=== PATIENT | male | born 1935 | race Two or more races ===

== ENCOUNTER 2016-11-11 11:44 | Outpatient (CLI) ==
[2016-11-11 13:11] LABS: BASOPHILS # (AUTO) 0.1 K/uL (0-0.2); BASOPHILS % (AUTO) 0.8 % (0.0-3.0); EOSINOPHILS # (AUTO) 0.2 K/ul (0.0-0.7); EOSINOPHILS % (AUTO) 3.7 % (0.0-7.0); HEMATOCRIT 42.6 % (42.0-52.0); HEMOGLOBIN 14.3 g/dl (14.0-18.0); IMMATURE GRANULOCYTE % (AUTO) 0.3 % (0.0-5.0); LYMPHOCYTES # (AUTO) 1.9 K/uL (0.60-3.4); LYMPHOCYTES % (AUTO) 30.8 (10.0-50.0); MEAN CORPUSCULAR HEMOGLOBIN 29.1 pg (27.0-31.0); MEAN CORPUSCULAR HGB CONC 33.6 (31.8-35.4); MEAN CORPUSCULAR VOLUME 86.8 fl (80.0-94.0); MONOCYTES # (AUTO) 0.4 K/uL (0.4-2.0); MONOCYTES % (AUTO) 5.9 (0-10); NEUTROPHILS # (AUTO) 3.7 K/ul (2.0-6.9); NEUTROPHILS % (AUTO) 58.5; PLATELET COUNT 170 10^3/uL (140-440); RED BLOOD COUNT 4.91 10^6/ul (4.70-6.10); WHITE BLOOD COUNT 6.24 K/ul (4.2-10.2)
[2016-11-11 14:33] LABS: ALBUMIN 3.7 g/dL (3.4-5.0); ALBUMIN/GLOBULIN RATIO 0.9; ANION GAP 15.1; BILIRUBIN,TOTAL 0.47 mg/dL (0.00-1.20); BUN/CREATININE RATIO 11.97; CALCIUM 9.6 mg/dL (8.2-10.2); CHOL/HDL RATIO 5.4 (4.5-6.4); CREATININE 1.42 mg/dL (0.60-1.10); POTASSIUM 4.1 mmol/L (3.5-5.1); TOTAL PROTEIN 7.8 g/dL (5.8-8.1)
== END 2016-11-11 11:45 | disposition home or self-care (01) ==
LOC: LAB 11:44
PROVIDERS: ATTEND Nurse Practitioner Family
DX: R49.0 Dysphonia (principal); E75.6 Lipid storage disorder, unspecified; Z12.5 Encounter for screening for malignant neoplasm of prostate; Z95.5 Presence of coronary angioplasty implant and graft; Z80.0 Family history of malignant neoplasm of digestive organs; Z87.891 Personal history of nicotine dependence
CPT/HCPCS: 36415; 80053; 80061; 84439; 84443; 85025

== ENCOUNTER 2016-11-12 09:41 | Outpatient (CLI) ==
--- NOTE | 2016-11-12 12:02 | CT ---
EXAM: CT THORAX HISTORY: Smoker for 30 years, family history of throat cancer, hoarseness. TECHNIQUE: CT thorax with and without intravenous contrast. 5-mm axial sections. Coronal and sagit chepe re-formations. 75 ml Visipaque [id number] FINDINGS: No comparison CT. Normal heart size. There is moderate atherosclerotic disease. Dilatation of the ascending aortic c aliber at 3.5 cm. There are a few scattered nonspecific mediastinal and hilar lymph nodes remaining sub centimeter in size. The lungs are hyperinflated. There is evidence of mild to moderate pulmonary emphysema. There is a partially calcified stellate focus in the right apex measuring 0.86 cm likely fibrotic in nature. In the anterior left upper lobe, there is a stellate 1.2 cm opacity which is indeterminate. In the medial left base near the posterior cardiophrenic angle, there is an indeterminate lobular opacity m easuring 1.3 cm axial and 2.2 cm coronal. There is linear consolidation in the posterior left cardi ophrenic angle, a band of opacity measuring up to 1.2 cm in thickness. This partially connects to t he other regional parenchymal abnormality. This could represent fibrosis or atelectasis. Cannot ex clude neoplasia. No vascular congestion or consolidated pneumonia is suspected. No pleural fluid. The bones reveal no acute abnormality. No supraclavicular or axillary lymphadenopathy is suggested. No apical or supraclavicular masses are obvious within the field of view. The level of the vocal folds is partially covered within the field of view and grossly unremarkable. IMPRESSION: 1. Pulmonary emphysema/chronic obstructive pulmonary disease. 2. There are two or three regions of indeterminate opacity within the left lung as described. Thes e are probably fibrotic although neoplasia is within the differential. Consider follow-up CT in [facility]. 3. Dilatation of the ascending aortic caliber at 3.5 cm. Atherosclerotic disease. 4. The level of the vocal folds is partially covered within the field of view and grossly unremarka ble.
== END 2016-11-12 09:42 | disposition home or self-care (01) ==
LOC: RAD 09:41
PROVIDERS: ATTEND Nurse Practitioner Family
DX: R49.0 Dysphonia (principal); Z80.0 Family history of malignant neoplasm of digestive organs; Z87.891 Personal history of nicotine dependence; Z95.5 Presence of coronary angioplasty implant and graft

== ENCOUNTER 2017-12-04 16:05 | Inpatient (IN) ==
--- NOTE | 2017-12-04 15:56 | ED.PDOC ---
General ED Provider: Dr. THAD SHAVER Chief Complaint: Shortness of Air Stated Complaint: Shortness of breath. stated her has been in failing heatlh with weight loss. Last year had imaging study suggestive of possible lung tumor but due to their residence out in [facility] found it difficult to follow up for additional testing plus he really did not want additional testing or treatment. Has not been eating or drinking fluid. Has developed progressive dyspnea and sought emergency evaluation . Time Seen by Physician: 15:40 Mode of Arrival: Ambulance Information Source: Patient, EMT Exam Limitations: No limitations Primary Care Provider: SHAHEED MIMS Nursing and Triage Documentation Reviewed and Agree: Yes Reviewed sepsis parameters & appropriate labs ordered?: Yes System Inflammatory Response Syndrome: Temp 96.8F or Lower, Pulse >90 BPM, Resp >20/Minute Sepsis Protocol: For patient's 13 years and over: Temp is 96.8 and below OR 101 and greater Pulse >90 BPM Resp >20/minute Acutely Altered Mental Status Are patient's symptoms suggestive of a new infection, such as: -Pneumonia -Skin, Soft Tissue -Endocarditis -UTI -Bone, Joint Infection -Implantable Device -Acute Abdominal Infection -Wound Infection -Meningitis -Blood Stream Catheter Infection -Unknown Respiratory Complaint Exam - Respiratory Complaint/Exam Symptoms Are: Still present, Worse Timing: Constant Initial Severity: Moderate Current Severity: Moderate Location: Throat, Chest Character: Reports: Dry cough Aggravating: Reports: Recumbent position Alleviating: Reports: Upright position Associated Signs and Symptoms: Reports: Rapid breathing, Dyspnea, Increased thirst Related History: Denies: Similar episode, Allergic reaction Related Surgical History: Reports: None Pulmonary Embolism Risk Factors: None Cardiac Risk Factors: Reports: None Pseudomonas Risk Factors: Reports: None Tuberculosis Risk Factors: Reports: None Status Asthmaticus Risk Factors: Reports: None Home Oxygen Use: No Recent Stress Test: No Recent Echo/LV Function: No Current Antibiotic Use: No Current Asthma Medication Use: No Respiratory Distress: Moderate Inadequate Respiratory Effort: Yes Dysphagia Present: No Stridor Present: No JVD Present: No Accessory Muscle Use: No Retractions: Not Present Diminished Breath Sounds: Yes Sinus Tenderness: None Grunting Respirations: No Kussmaul Respirations: No Differential Diagnoses: COPD Exacerbation, Pneumonia Quality Indicators For Pneumonia: Blood Cultures-SCU admit, Antibiotics in 6hr- admit, Vital signs, Mental status assessed Non-Traumatic Chest Pain Syncope: EKG Performed Review of Systems - Review Of Systems Constitutional: Reports: Weakness, Loss of appetite Eyes: Reports: No symptoms Ears, Nose, Mouth, Throat: Reports: No symptoms Respiratory: Reports: Cough, Short of air, Wheezing Cardiac: Reports: Palpitations GI: Reports: No symptoms : Reports: No symptoms Musculoskeletal: Reports: No symptoms Skin: Reports: No symptoms Neurological: Reports: No symptoms Endocrine: Reports: No symptoms Hematologic/Lymphatic: Reports: No symptoms All Other Systems: Reviewed and Negative Past Medical History - Past Medical History Previously Healthy: No Endocrine: Reports: Unknown Cardiovascular: Reports: Unknown Respiratory: Reports: COPD Hematological: Reports: None Gastrointestinal: Reports: None Genitourinary: Reports: None Neuro/Psych: Reports: None Musculoskeletal: Reports: None Cancer: Reports: None - Surgical History General Surgical History: Reports: Unknown - Family History Family History: Reports: Unknown - Social History Smoking Status: Unknown if ever smoked Hx Substance Use: No Alcohol Screening: None Physical Exam - Physical Exam Appearance: Ill-appearing, Cachectic Ill-appearing: Severe Pain Distress: None Eyes: LIZZ, EOMI, Conjunctiva clear ENT: Ears normal, Nose normal, Oropharynx normal Neck: Supple Respiratory: Airway patent, Breath sounds clear, Breath sounds diminished, Wheezes Cardiovascular: Tachycardia GI/: Soft, Nontender, No masses Musculoskeletal: Normal strength, ROM intact, No edema Skin: Warm, Dry, Normal color Neurological: Sensation intact, Motor intact, Alert, Oriented Psychiatric: Affect appropriate, Mood appropriate Interpretation - Radiology Interpretation Radiology Interpretation By: Radiologist Radiology Results: Positive Exam Interpreted: Portable CXR Critical Care Note - Critical Care Note Total Time (mins): 30 Course - Course Hematology/Chemistry: 12/04/17 15:45 12/04/17 15:45 Orders, Labs, Meds: Lab Review 12/04/17 12/04/17 12/04/17 15:45 15:45 15:45 WBC 13.18 H RBC 5.14 Hgb 13.2 L Hct 40.6 L MCV 79.0 L MCH 25.7 L MCHC 32.5 RDW Coeff of Rosa 15.4 H Plt Count 236 Immature Gran % (Auto) 0.4 Neut % (Auto) 80.1 Lymph % (Auto) 13.1 [place] % (Auto) 6.1 Eos % (Auto) 0.2 Baso % (Auto) 0.1 Immature Gran # (Auto) 0.1 Neut # (Auto) 10.6 H Lymph # (Auto) 1.7 [place] # (Auto) 0.8 Eos # (Auto) 0.0 Baso # (Auto) 0.0 ESR D-Dimer (Manual) Puncture Site Lbrach O2 Saturation 88.0 L ABG pH 7.462 H ABG pCO2 46.6 H ABG pO2 52.0 L* ABG HCO3 33.3 H ABG Total CO2 35 H ABG Base Excess 10 H FiO2 % 21.0 Sodium 140 Potassium 4.0 Chloride 94 L Carbon Dioxide 28 Anion Gap 22.0 BUN 49 H Creatinine 1.59 H Estimated GFR (MDRD) 42.00 BUN/Creatinine Ratio 30.81 Glucose 96 Lactic Acid Calcium 11.0 H Total Bilirubin 0.6 AST 14 L ALT 12 Alkaline Phosphatase 100 Total Creatine Kinase 31 Troponin I 0.0450 B-Natriuretic Peptide Total Protein 7.7 Albumin 2.5 L Globulin 5.2 Albumin/Globulin Ratio 0.48 Procalcitonin Urine Color Urine Clarity Urine pH Ur Specific [place] Urine Protein Urine Glucose (UA) Urine Ketones Urine Blood Urine Nitrite Urine Bilirubin Urine Urobilinogen Ur Leukocyte Esterase Urine Microscopic WBC Ur Squamous Epith Cells Influ A Molecular Assay Influ B Molecular Assay 12/04/17 12/04/17 12/04/17 15:45 15:45 15:45 WBC RBC Hgb Hct MCV MCH MCHC RDW Coeff of Rosa Plt Count Immature Gran % (Auto) Neut % (Auto) Lymph % (Auto) [place] % (Auto) Eos % (Auto) Baso % (Auto) Immature Gran # (Auto) Neut # (Auto) Lymph # (Auto) [place] # (Auto) Eos # (Auto) Baso # (Auto) ESR D-Dimer (Manual) Puncture Site O2 Saturation ABG pH ABG pCO2 ABG pO2 ABG HCO3 ABG Total CO2 ABG Base Excess FiO2 % Sodium Potassium Chloride Carbon Dioxide Anion Gap BUN Creatinine Estimated GFR (MDRD) BUN/Creatinine Ratio Glucose Lactic Acid 12.2 Calcium Total Bilirubin AST ALT Alkaline Phosphatase Total Creatine Kinase Troponin I B-Natriuretic Peptide 120 H Total Protein Albumin Globulin Albumin/Globulin Ratio Procalcitonin 0.83 Urine Color Urine Clarity Urine pH Ur Specific [place] Urine Protein Urine Glucose (UA) Urine Ketones Urine Blood Urine Nitrite Urine Bilirubin Urine Urobilinogen Ur Leukocyte Esterase Urine Microscopic WBC Ur Squamous Epith Cells Influ A Molecular Assay Influ B Molecular Assay 12/04/17 12/04/17 12/04/17 15:45 15:45 16:10 WBC RBC Hgb Hct MCV MCH MCHC RDW Coeff of Rosa Plt Count Immature Gran % (Auto) Neut % (Auto) Lymph % (Auto) [place] % (Auto) Eos % (Auto) Baso % (Auto) Immature Gran # (Auto) Neut # (Auto) Lymph # (Auto) [place] # (Auto) Eos # (Auto) Baso # (Auto) ESR 73 H D-Dimer (Manual) 1938.82 Puncture Site O2 Saturation ABG pH ABG pCO2 ABG pO2 ABG HCO3 ABG Total CO2 ABG Base Excess FiO2 % Sodium Potassium Chloride Carbon Dioxide Anion Gap BUN Creatinine Estimated GFR (MDRD) BUN/Creatinine Ratio Glucose Lactic Acid Calcium Total Bilirubin AST ALT Alkaline Phosphatase Total Creatine Kinase Troponin I B-Natriuretic Peptide Total Protein Albumin Globulin Albumin/Globulin Ratio Procalcitonin Urine Color Urine Clarity Urine pH Ur Specific [place] Urine Protein Urine Glucose (UA) Urine Ketones Urine Blood Urine Nitrite Urine Bilirubin Urine Urobilinogen Ur Leukocyte Esterase Urine Microscopic WBC Ur Squamous Epith Cells Influ A Molecular Assay Negative by naat Influ B Molecular Assay Negative by naat 12/04/17 16:10 WBC RBC Hgb Hct MCV MCH MCHC RDW Coeff of Rosa Plt Count Immature Gran % (Auto) Neut % (Auto) Lymph % (Auto) [place] % (Auto) Eos % (Auto) Baso % (Auto) Immature Gran # (Auto) Neut # (Auto) Lymph # (Auto) [place] # (Auto) Eos # (Auto) Baso # (Auto) ESR D-Dimer (Manual) Puncture Site O2 Saturation ABG pH ABG pCO2 ABG pO2 ABG HCO3 ABG Total CO2 ABG Base Excess FiO2 % Sodium Potassium Chloride Carbon Dioxide Anion Gap BUN Creatinine Estimated GFR (MDRD) BUN/Creatinine Ratio Glucose Lactic Acid Calcium Total Bilirubin AST ALT Alkaline Phosphatase Total Creatine Kinase Troponin I B-Natriuretic Peptide Total Protein Albumin Globulin Albumin/Globulin Ratio Procalcitonin Urine Color Yellow Urine Clarity Clear Urine pH 5.5 Ur Specific [place] 1.025 Urine Protein 1+ Urine Glucose (UA) Negative Urine Ketones Negative Urine Blood Negative Urine Nitrite Negative Urine Bilirubin Negative Urine Urobilinogen 0.2 Ur Leukocyte Esterase Negative Urine Microscopic WBC 0-2 Ur Squamous Epith Cells 0-2 Influ A Molecular Assay Influ B Molecular Assay Orders Category Date Time Status ADMIT PATIENT INPATIENT .TO SCU (MONITORED BED) ADMISSION 12/04/17 17:21 Active EKG-(ED ONLY) Stat CARDIO 12/04/17 15:46 Completed NEBULIZER TREATMENT Routine CARDIO 12/04/17 17:24 Ordered OXYGEN Routine CARDIO 12/04/17 17:22 Ordered ACTIVITY .BR with BRP CARE 12/04/17 17:21 Active INTAKE & OUTPUT Q8HR CARE 12/04/17 17:21 Active IV ACCESS CARE 12/04/17 15:46 Active TELEMETRY MONITORING TELE CARE 12/04/17 17:22 Active VITAL SIGNS Q4HR CARE 12/04/17 17:21 Active CARDIAC DIET DIETARY 12/04/17 Dinner Ordered IV [ED IV/MEDIPORT/POWERPORT] .ONCE EMERGENCY 12/04/17 15:58 Active ABG Stat LAB 12/04/17 15:45 Completed BLOOD CULTURE (ED ONLY) Stat LAB 12/04/17 15:45 Received BNP [B-TYPE NATRIURETIC PEPTIDE] Stat LAB 12/04/17 15:45 Completed CBC W/ AUTO DIFF DAILY@0600 LAB 12/05/17 06:00 Ordered CBC W/ AUTO DIFF DAILY@0600 LAB 12/06/17 06:00 Ordered CBC W/ AUTO DIFF Stat LAB 12/04/17 15:45 Completed CMP [COMPREHENSIVE METABOLIC PANEL] Stat LAB 12/04/17 15:45 Completed COMPREHENSIVE METABOLIC PANEL DAILY@0600 LAB 12/05/17 06:00 Ordered COMPREHENSIVE METABOLIC PANEL DAILY@0600 LAB 12/06/17 06:00 Ordered CPK [CREATINE KINASE] Stat LAB 12/04/17 15:45 Completed CREATINE KINASE Q8H LAB 12/04/17 23:30 Ordered CREATINE KINASE Q8H LAB 12/05/17 07:30 Ordered D-DIMER Stat LAB 12/04/17 15:45 Completed ESR Stat LAB 12/04/17 15:45 Completed FLU A & B MOLECULAR [FLU A/B MOLECULAR] Stat LAB 12/04/17 16:10 Completed LACTIC ACID Stat LAB 12/04/17 15:45 Completed PROCALCITONIN Stat LAB 12/04/17 15:45 Completed SPUTUM CULTURE Stat LAB 12/04/17 15:46 Uncollected TROPONIN I Q8H LAB 12/04/17 23:30 Ordered TROPONIN I Q8H LAB 12/05/17 07:30 Ordered TROPONIN I Stat LAB 12/04/17 15:45 Completed UA [URINALYSIS C & S IF INDICATED] Stat LAB 12/04/17 16:10 Completed 0.9 % Sodium Chloride [Saline Flush] MEDS 12/04/17 15:58 Active 1 syr IVF PRN PRN Acetaminophen [Tylenol] MEDS 12/04/17 17:21 Active 650 mg PO Q4H PRN Ceftriaxone Sodium [Rocephin] 1 gm MEDS 12/04/17 17:30 Active 0.9 % Sodium Chloride [Sodium Chloride] 50 ml IV DAILY Diltiazem HCl [Cardizem] MEDS 12/04/17 21:00 Active 30 mg PO Q8HR Enoxaparin Sodium [Lovenox] MEDS 12/04/17 17:30 Active 30 mg SUBCUT DAILY Levalbuterol HCl [Xopenex 1.25 mg] MEDS 12/04/17 18:00 Active 1 vial NEB RTQ6H Methylprednisolone Sod Succ/Pf [Solu-Medrol 125 mg] MEDS 12/04/17 17:30 Active 80 mg IVP Q8H Sodium Chloride 0.9% [Sodium Chloride] 1,000 ml MEDS 12/04/17 17:30 Active IV 75 mls/hr Sodium Chloride 0.9% [Sodium Chloride] 1,000 ml MEDS 12/04/17 15:55 Discontinued IV BOLUS RESUSCITATION STATUS Routine OTHERS 12/04/17 17:21 Ordered CHEST, 1V AP ONLY Stat RADS 12/04/17 15:45 Completed Medications Generic Name Dose Route Start Last Admin Trade Name Freq PRN Reason Stop Dose Admin Acetaminophen 650 mg 12/04/17 17:21 Tylenol PO Q4H PRN Mild Pain Diltiazem HCl 30 mg 12/04/17 21:00 Cardizem PO Q8HR JAYSON Enoxaparin Sodium 30 mg 12/04/17 17:30 Lovenox SUBCUT DAILY JAYSON Ceftriaxone Sodium 1 gm/ 50 mls @ 75 mls/hr 12/04/17 17:30 Sodium Chloride IV DAILY JAYSON Sodium Chloride 1,000 mls @ 75 mls/hr 12/04/17 17:30 Sodium Chloride IV .[id number] JYASON Levalbuterol HCl 1 vial 12/04/17 18:00 12/04/17 18:04 Xopenex 1.25 Mg NEB Not Given RTQ6H JAYSON Methylprednisolone Sodium Succinate 80 mg 12/04/17 17:30 Solu-Medrol 125 Mg IVP Q8H JAYSON Sodium Chloride 1 syr 12/04/17 15:58 12/04/17 15:35 Saline Flush IVF 1 syr PRN PRN Administration To flush IV Discontinued Medications Generic Name Dose Route Start Last Admin Trade Name Freq PRN Reason Stop Dose Admin Sodium Chloride 1,000 mls @ 500 mls/hr 12/04/17 15:55 12/04/17 16:00 Sodium Chloride IV 12/04/17 17:54 250 mls/hr BOLUS STA Administration Vital Signs: Temp Pulse Resp BP Pulse Ox 12/04/17 16:24 130 H 24 91/72 91 L 12/04/17 15:34 96.9 F L 143 H 28 H 159/135 H 0 L Departure - Departure Time of Disposition: 17:00 Disposition: ADMITTED INPATIENT Discharge Problem: COPD (chronic obstructive pulmonary disease) Pneumonia Qualifiers: Pneumonia type: due to unspecified organism Laterality: left Lung location: lower lobe of lung Qualified Code(s): J18.1 - Lobar pneumonia, unspecified organism Condition: Stable Pt referred to PMD for follow-up: Yes (admitted to DR Nieves) IPMP verified?: No Allergies/Adverse Reactions: Allergies No Known Allergies Allergy (Verified 12/04/17 15:46) Home Medications: Ambulatory Orders Aspirin 81 mg PO DAILY 11/04/16 Disposition Discussed With: Patient, Family Additional Information: Discussed with Dr Nieves who agreed to accept patient for admisson
--- NOTE | 2017-12-04 16:03 | DI ---
EXAM: CHEST FRONTAL VIEW HISTORY: Dyspnea, possible lung mass. COMPARISON: CT of 11/12/2016 FINDINGS: The nodular opacities described on prior CT report would be difficult to see and accuratel y evaluate by radiography. Follow-up CT is recommended. There is mild density in the left base whic h is suggestive of pneumonia. Probable chronic obstructive pulmonary disease. Correlate clinically. L ungs are otherwise clear. Heart size within normal limits. IMPRESSION: 1. Follow-up CT is recommended for abnormal opacities seen in the left lung on prior CT scan. 2. Mild left base pneumonia. 3. Chronic obstructive pulmonary disease is suspected.
[~2017-12-04 16:05] MED LIST: SODIUM CHLORIDE 1,000 ML IV STA
[2017-12-04] MEDS ORDERED: TYLENOL PO PRN (17:21)
[2017-12-04] MEDS: XOPENEX 1.25 MG NEB SCH ×2 (18:04→22:40)
[2017-12-04 18:29] VITALS: BMI 14.4
[2017-12-04] MEDS: ROCEPHIN 1 GM in SODIUM CHLORIDE 50 ML IV SCH (19:44)
[2017-12-04] MEDS: LOVENOX SUBCUT SCH (19:49)
[2017-12-04] MEDS: SOLU-MEDROL 125 MG IVP SCH (19:49)
[2017-12-04] MEDS: CARDIZEM PO SCH (20:08)
[2017-12-04] MEDS: SODIUM CHLORIDE 1,000 ML IV SCH (23:17)
[2017-12-05] MEDS: SOLU-MEDROL 125 MG IVP SCH ×3 (02:47→18:46)
[2017-12-05] MEDS: XOPENEX 1.25 MG NEB SCH ×4 (04:30→22:35)
[2017-12-05] MEDS: CARDIZEM PO SCH ×3 (05:20→20:33)
[2017-12-05] MEDS: ROCEPHIN 1 GM in SODIUM CHLORIDE 50 ML IV SCH (08:51)
[2017-12-05] MEDS: LOVENOX SUBCUT SCH (08:51)
--- NOTE | 2017-12-05 10:31 | CT ---
EXAM: CT THORAX HISTORY: Shortness of breath. TECHNIQUE: CT thorax without intravenous contrast. Multiplanar images presented. COMPARISON: 11/12/2016 FINDINGS: Normal heart size. Moderately severe atherosclerotic disease. Stable dilatation of the ascending ao rta and about 3.4 cm. Moderate emphysema/chronic obstructive pulmonary disease is again noted. There is a large amount of consolidation in the posterior left lower lobe. There is milder nodular consolidation in the posteri or right lower lobe. Additional tiny nodular opacities are seen with the previously mentioned anteri or left upper lobe nodule redemonstrated. This appears larger currently measuring 12 mm coronal dime nsion versus 9 mm previous. There is no vascular congestion, pneumothorax or pleural fluid. There are lower cervical and supraclavicular lymph nodes which appear slightly larger compared to kevin or study. These are indeterminate and measure about 9 mm short axis. IMPRESSION: 1. At least moderate pneumonia, mostly seen in the left base. 2. Moderate emphysema/chronic obstructive pulmonary disease. 3. Enlarging anterior left upper lobe stellate nodule which could be neoplastic. Increasing distinc tness and size of the lower cervical/supraclavicular lymph nodes which are indeterminate. 4. Severe atherosclerosis. Stable dilatation of the ascending aortic caliber at 3.4 cm.
[2017-12-05] MEDS: SODIUM CHLORIDE 1,000 ML IV SCH (18:37)
[2017-12-06] MEDS: SOLU-MEDROL 125 MG IVP SCH ×3 (02:04→17:37)
[2017-12-06] MEDS: XOPENEX 1.25 MG NEB SCH ×4 (04:30→22:50)
[2017-12-06] MEDS: CARDIZEM PO SCH ×3 (06:13→21:23)
[2017-12-06] MEDS: SODIUM CHLORIDE 1,000 ML IV SCH ×3 (07:12→21:23)
[2017-12-06] MEDS: LOVENOX SUBCUT SCH (09:04)
[2017-12-06] MEDS: ROCEPHIN 1 GM in SODIUM CHLORIDE 50 ML IV SCH (09:06)
[2017-12-06 22:41] VITALS: TEMP 97.4
[2017-12-07] MEDS: SOLU-MEDROL 125 MG IVP SCH (01:47)
[2017-12-07] MEDS ORDERED: LASIX ONE (03:10)
[2017-12-07] MEDS ORDERED: DUONEB NEB PRN (03:16)
[2017-12-07] MEDS ORDERED: MORPHINE 2 MG/ML SYRINGE IVP STA (04:07)
[2017-12-07] MEDS ORDERED: NITROSTAT SL STA (04:37)
[2017-12-07] MEDS: CARDIZEM PO SCH (05:03)
[2017-12-07] MEDS: XOPENEX 1.25 MG NEB SCH ×2 (05:18→11:25)
[2017-12-07] MEDS ORDERED: AZACTAM 1 GM in SODIUM CHLORIDE 50 ML IV SCH ×2 (07:30→09:00)
[2017-12-07] MEDS ORDERED: SOLU-MEDROL 125 MG IVP SCH (07:30)
[2017-12-07] MEDS: LOVENOX SUBCUT SCH (08:31)
[2017-12-07] MEDS ORDERED: ZOFRAN 4 MG/2 ML IVP PRN (09:27)
[2017-12-07] MEDS ORDERED: MORPHINE 2 MG/ML SYRINGE IVP PRN (09:27)
[2017-12-07 11:11] VITALS: BP 76/46
--- NOTE | 2017-12-07 12:23 | PCM.PROG ---
Time of : 12:15
--- NOTE | 2018-01-02 08:45 | HP ---
DATE OF SERVICE: 12/04/17 CHIEF COMPLAINT: Shortness of breath HISTORY OF PRESENT ILLNESS: This is an 82 year old male used to be seen by Chey at the clinic and hasn't been seeing any doctor for almost two years. The patient been gradually getting shortness of breath, cough and congestion for 3-4 days. Did not eat any food for two days as the patient was short of breath. As the patient was starting feeling the palpitation and increased heart rate called the EMS and brought the patient here. The patient was also having the fever and chills. Temperature was 96.9 in the ER. Blood pressure 159/35, respiratory rate 28, heart rate 143 atrial fibrillation, temperature 96.9, REVIEW OF SYSTEMS: CONSTITUTIONAL: No fever, no chills. GENERAL: Cachetic and sick looking male laying in a bed, in moderate respiratory distress. is at bedside. HEENT: Hard of hearing. ENDOCRINE: No weight gain; no weight loss. CVS: No chest pain. No PND, no orthopnea. No shortness of breath. No PND, no orthopnea. RESPIRATORY: No cough, no congestion. No hemoptysis. GI: No nausea, no vomiting. No abdominal pain. No melena. : No hematuria. No polyuria. MUSCULOSKELETAL: No joint swelling. PSYCHIATRIC: Not anxious. No depression. No suicidal thoughts. No homicidal thoughts. SKIN: Intact, no open lesions. PAST MEDICAL HISTORY: Coronary artery disease status post stent Dyslipidemia History of TIA COPD Lung mass, never had any evaluation GERD. PAST SURGICAL HISTORY: None PERSONAL HISTORY: History of nicotine, quit in 1990. and lives with the . Family history is not significant. MEDICATIONS: None ALLERGIES: No known drug allergies PHYSICAL EXAMINATION: HEENT: Atraumatic, normocephalic. No scleral icterus. Pallor positive. Mucosa dry. NECK: Supple. No JVD, no bruit. No lymphadenopathy. No thyromegaly. HEART: S1, S2 Irregular heart rate with around 140-150. No murmur. No cyanosis or clubbing. No ascites. LUNGS: Defused basilar crackles and expiratory wheezing. Clear to auscultation. No rales or rhonchi. ABDOMEN: Soft, nontender. Bowel sounds are active. No CVA tenderness. No rigidity or guarding. EXTREMITIES: No pedal edema. No cyanosis or clubbing MUSCULOSKELETAL: Normal joints, no swelling. NEUROLOGIC: The patient is SKIN: Intact; no open lesions. Dry. LYMPHATIC: No lymph nodes palpable. LABS: WBC 13.18, hgb 13.2, hct 40.6, plt count 236, sodium 141, potassium 4.2, chloride 97, bicarb 27, BUN 49, creatinine 1.59 and glucose 96. BNP 120. Chest x -ray showed bibasilar pneumonia. ASSESSMENT: 1. Hypoxemic respiratory failure secondary to the bibasilar pneumonia, community acquired 2. New onset atrial fibrillation with rapid ventricular rate 3. Cachexia and weight loss 4. History of lung mass, further evaluation was not done 5. Nicotine use 6. History of coronary artery disease with status post stent 7. History of TIA PLAN: 1. Admit patient to the SCU 2. Rocephin 1 gram daily 3. IV fluids 4. DUO NEBS 5. Cardizem 30mg Q 8 hours 6. Lovenox for the DVT prophylaxis 7. Daily I&O's TIME SPENT: MORE THAN 75 minutes which is ICU care MTDD
--- NOTE | 2018-01-02 09:41 | PN ---
DATE OF SERVICE: 12/05/17 SUBJECTIVE: The patient was admitted with acute hypoxemic respiratory failure with pneumonia. The patient's heart rate has been better, getting Cardizem. The patient's is at the bedside. REVIEW OF SYSTEMS: CONSTITUTIONAL: No fever, no chills. HEENT: Normal. ENDOCRINE: No weight gain, no weight loss. CVS: No angina symptoms. No CHF symptoms. No palpitations. No atypical chest pain for CAD. No shortness of breath. No PND, no orthopnea. RESPIRATORY: No cough, no hemoptysis. GI: No nausea, no vomiting. No abdominal pain. : No hematuria. No polyuria. MUSCULOSKELETAL: No joint swelling. PSYCHIATRIC: Not anxious. No depression. No suicidal thoughts. No homicidal thoughts. SKIN: Intact. No rash. PHYSICAL EXAMINATION: V/S: Blood pressure 111/63, respiratory rate 20, heart rate 69, temperature 97.9 and saturation 96% HEENT: Normocephalic, atraumatic. Mucosa dry. Pallor positive. No icterus. GENERAL: Sick looking male laying in a bed NECK: Supple. No JVD, no carotid bruit. No lymphadenopathy. LUNGS: Decreased and basilar crackles. Expiratory wheezing is present. Clear to auscultation. No rales or rhonchi. HEART: S1, S2 normal. Sinus rhythm. No S3. No murmur, gallop or regurgitation. ABDOMEN: Soft, nontender. Bowel sounds active. No rigidity. No rebound or guarding. No CVA tenderness. EXTREMITIES: No pedal edema. No clubbing or cyanosis MUSCULOSKELETAL: No joint swelling. NEUROLOGIC: Awake, alert, oriented times three. No focal deficit. LYMPHATIC: No lymph nodes palpable. SKIN: Intact. LABS: Sodium 141, potassium 4.2, chloride 97, bicarb 27, BUN 52, creatinine 1.62 and glucose 185, WBC 7.38, hgb 12.0, hct 38.9, plt count 188. ASSESSMENT: 1. Hypoxemic respiratory failure 2. Bilateral pneumonia but get CAT scan of chest to rule out any mass 3. Acute renal failure 4. Hyperglycemia from the steroids 5. History of TIA 6. History of CAD status post stent PLAN: 1. Continue Rocephin 2. Azithromycin 3. Solu-Medrol 4. Lovenox TIME SPENT: More than 35 minutes which is critical care time. MTDD
--- NOTE | 2018-01-02 11:54 | PN ---
DATE OF SERVICE: 12/06/17 SUBJECTIVE: The patient was admitted with COPD exacerbation, bilateral pneumonia. CT scan of the chest did show some kind of a mass. Remote history of the patient having a lung mass, for which the patient never got and evaluation done. The patient's is in the room. The patient went into more acute respiratory distress over the night and we had to give Lasix and put the patient on a Venturi Mask. They do not want intubation or any aggressive measures at this time. The patient is in agonal breathing. PHYSICAL EXAMINATION: GENERAL: Cachectic man lying in the bed, sick looking. V/S: Blood pressure is 99/50, respiratory rate 28, heart rate 74, afebrile. HEENT: Normocephalic, atraumatic. Mucosa dry. Pallor positive. NECK: Supple. No JVD, no carotid bruit. No lymphadenopathy. LUNGS: Decreased basilar crackles, wheezing. No rales or rhonchi. HEART: S1, S2 normal. No S3. No murmur, gallop or regurgitation. ABDOMEN: Soft, nontender. Bowel sounds active. No rigidity. No rebound or guarding. No CVA tenderness. EXTREMITIES: No pedal edema. No clubbing or cyanosis MUSCULOSKELETAL: No joint swelling. NEUROLOGIC: Could not be assessed. LYMPHATIC: No lymph nodes palpable. SKIN: Intact. LABS: White count is 19.20, hemoglobin 11.5, hematocrit 40.9, platelet count 299, sodium 140, potassium 4.3, chloride 107, bicarb 35, BUN 41, creatinine 1.79 , glucose 252. ASSESSMENT: 1. ACUTE HYPOXEMIC RESPIRATORY FAILURE 2. COMMUNITY ACQUIRED PNEUMONIA 3. LUNG MASS, DOES NOT WANT ANY FURTHER EVALUATION 4. ACUTE RENAL FAILURE 5. HYPERNATREMIA PLAN: 1. Change the fluids to 1/2 normal saline. 2. Azactam every 12 hours. 3. Lovenox for the DVT prophylaxis. 4. Solu-Medrol 125 mg every 8 hours. TIME SPENT: More than 35 minutes, which is critical care time. [facility]
--- NOTE | 2018-01-28 15:03 | DS ---
DATE OF SERVICE: 12/07/17 FINAL DIAGNOSIS: 1. Cardiovascular arrest 2. Respiratory failure 3. Community acquired pneumonia 4. Lung mass, does not want any further evaluation 5. Acute renal failure 6. Hypertension 7. Noncompliance. DISCHARGE INSTRUCTIONS: Discharge the body to the home. MEDICATIONS AT DISCHARGE: None NEW PRESCRIPTIONS: None DIET INSTRUCTIONS: None DISEASE SPECIFIC EDUCATION: None HOSPITAL COURSE: Jone Brown who is an 82 year old male comes to [facility] and seen by Paola Guerrier came to the emergency room with shortness of breath, cough and congestion. Brought by family. Dr. Bhakta saw the patient. The patient was in hypoxemic respiratory failure. D-dimer was 1938. ABG showed the pH 7.462, pCO2 46, pO2 52. CT chest showed the pneumonia and bibasilar and questionable mass. Started on the IV antibiotics and breathing treatments. The patient's family doesn't want any evasive management to be done at this time because of the poor prognosis. The patient was not intubate and not transferred. Gradually his condition got deteriorated and then . The patient been pronounced at 12:15pm on 12/07/[address] Moran. TIME SPENT: MORE THAN 60 MINUTES MTDD
== END 2017-12-07 13:30 | disposition expired | DRG 189 ==
LOC: ED 16:06 → SCU 17:26
PROVIDERS: ADMIT Emergency Medicine; ATTEND Emergency Medicine
DX: J96.01 Acute respiratory failure with hypoxia (principal); J18.1 Lobar pneumonia, unspecified organism; N17.9 Acute kidney failure, unspecified; E87.0 Hyperosmolality and hypernatremia; J44.9 Chronic obstructive pulmonary disease, unspecified; R06.02 Shortness of breath; I48.91 Unspecified atrial fibrillation; R00.0 Tachycardia, unspecified; R91.8 Other nonspecific abnormal finding of lung field; R79.1 Abnormal coagulation profile; I25.10 Atherosclerotic heart disease of native coronary artery without angina pectoris; I10 Essential (primary) hypertension; Z86.73 Personal history of transient ischemic attack (TIA), and cerebral infarction without residual deficits; Z91.19 Patient's noncompliance with other medical treatment and regimen; Z95.5 Presence of coronary angioplasty implant and graft
CPT/HCPCS: 36415; 80053; 81001; 82550; 82803; 83605; 83880; 84145; 84484; 85025; 85379; 85651; 87040; 87502; 93005; 93010; 94640; 96360; 96361; 99284